=== PATIENT | female | born 1985 | race Two or more races ===

== ENCOUNTER 2020-04-01 18:03 | Emergency (ER) | payer MEDICAID ==
[~2020-04-01] VITALS: Ht 160 cm; Wt 86.2 kg
[2020-04-01 20:44] VITALS: BP 124/75
== END 2020-04-01 21:25 | disposition home or self-care (01) ==
LOC: ER 18:03
DX: S09.8XXA Other specified injuries of head, initial encounter (principal); H92.02 Otalgia, left ear; Y04.0XXA Assault by unarmed brawl or fight, initial encounter; Y93.89 Activity, other specified; Y92.89 Other specified places as the place of occurrence of the external cause; Y99.8 Other external cause status
CPT/HCPCS: 70450

== ENCOUNTER 2023-06-04 23:43 | Emergency (ER) | payer MEDICAID ==
[~2023-06-04] VITALS: Ht 160 cm; Wt 89.4 kg
[2023-06-05 00:35] LABS: Urine Bacteria MOD /hpf (None Seen); Urine Blood Negative /uL (Negative); Urine Mucus FEW (None Seen); Urine Specific Gravity 1.026 (1.001-1.035); Urine WBC 44 /hpf (0 - 5)
[2023-06-05] MEDS ORDERED: cefTRIAXone SOD 1,000 MG VL IM ONE (01:15)
[2023-06-05] MEDS ORDERED: CIPR500T4 PO ×3 (01:22→14:38)
[2023-06-05] MEDS ORDERED: PHEN-922 PO ×3 (01:22→14:38)
[2023-06-05 02:31] VITALS: BP 125/78; PULSE 77; RESP 18; TEMP 98.3; O2SAT 97
== END 2023-06-05 02:33 | disposition home or self-care (01) ==
LOC: ER 23:43
DX: N39.0 Urinary tract infection, site not specified (principal)
CPT/HCPCS: 81001; 81025; 96372; 99283; J0696

== ENCOUNTER 2023-09-08 23:41 | Emergency (ER) | payer MEDICAID ==
[~2023-09-08] VITALS: Ht 160 cm; Wt 84.1 kg
[~2023-09-08 23:41] MED LIST: CIPR500T4 PO; PHEN-922 PO
[2023-09-09 00:11] VITALS: BP 127/77; PULSE 87; RESP 15; O2SAT 98
[2023-09-09 03:12] LABS: Urine Bacteria FEW /hpf (None Seen); Urine Blood Negative /uL (Negative); Urine Clarity Clear (Clear); Urine Color Brown (Yellow); Urine Mucus FEW (None Seen); Urine Protein, UAD 1+ (Negative); Urine Specific Gravity 1.036 (1.001-1.035); Urine WBC 12 /hpf (0 - 5)
== END 2023-09-09 01:36 | disposition left against medical advice (07) ==
LOC: ER 23:41
DX: R30.9 Painful micturition, unspecified (principal); R30.0 Dysuria; R35.0 Frequency of micturition; Z53.21 Procedure and treatment not carried out due to patient leaving prior to being seen by health care provider
CPT/HCPCS: 81001